=== PATIENT | female | born 1990 | race Caucasian/White ===

== ENCOUNTER 2018-01-05 17:08 | Emergency (ER) | payer OTHER ==
[2018-01-05] MEDS ORDERED: IBUPROFEN 800 MG TAB PO ONE (17:50)
[2018-01-05] MEDS ORDERED: CYCLOBENZAPRINE 10 MG TAB PO ONE (17:50)
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
[2018-01-05 19:02] VITALS: BP 99/74
== END 2018-01-05 19:31 | disposition home or self-care (01) ==
DX: S16.1XXA Strain of muscle, fascia and tendon at neck level, initial encounter (principal); S39.012A Strain of muscle, fascia and tendon of lower back, initial encounter; V49.40XA Driver injured in collision with unspecified motor vehicles in traffic accident, initial encounter; Y92.410 Unspecified street and highway as the place of occurrence of the external cause; Y99.8 Other external cause status; Y93.89 Activity, other specified